=== PATIENT | male | born 1940 | race Caucasian/White ===

== ENCOUNTER 2017-11-04 11:24 | Observation (INO) ==
[2017-11-04] MEDS ORDERED: Naloxone 0.4 MG/ML INJ IVP PRN (16:07)
[2017-11-04] MEDS ORDERED: Acetaminophen 325 MG TABLET PO PRN (16:07)
[2017-11-04] MEDS ORDERED: Ondansetron 4 MG/2 ML VIAL IVP PRN (16:07)
--- NOTE | 2017-11-04 16:35 | Internal Med History&Physical ---
Date of Encounter: 11/04/17 Time of Encounter: 16:35 Assessment and Plan (1) Chest pain Current visit: Yes Status: Acute Patient was awakened this a.m. with midsternal chest heaviness which was nonradiating. EKG with no ST-T wave elevations Troponin is 0.01 which we will continue to trend Continue with aspirin and statin Check lipid profile in the a.m. Continue his cardiac monitoring Nothing by mouth after midnight for cardiac stress test in the a.m. Obtain cardiac echo Qualifiers: Chest pain type: precordial pain Qualified Code(s): R07.2 - Precordial pain (2) Hypertension Current visit: Yes Status: Chronic Presently controlled-continue with Hytrin Qualifiers: Hypertension type: essential hypertension Qualified Code(s): I10 - Essential (primary) hypertension (3) COPD (chronic obstructive pulmonary disease) Current visit: Yes Status: Chronic We will continue with bronchodilators and oxygen as needed Qualifiers: COPD type: unspecified COPD Qualified Code(s): J44.9 - Chronic obstructive pulmonary disease, unspecified (4) DVT prophylaxis Current visit: Yes Status: Acute Lovenox subcutaneous Internal Medicine - H&P: HPI Chief complaint: CP Admitted From: Hospital to Hospital Transfer Plans for Post Hospital Care: Home History of present illness: Mr. Chaney is a 77 year old male past echo history of hypertension hyperlipidemia COPD BPH,SVT according to the patient he was awaken by midsternal chest heaviness which he states is nonradiating. He had associated symptoms of shortness of breath nausea and vomiting. Upon arrival of EMS was that the patient's heart rate was 160. Upon arrival to the ER he was given Cardizem IV push 1 which did improve his rate and relief his chest pain EKG did reveal sinus tachycardia with PVC and a complete right bundle branch block. Lab work was unremarkable. Troponin was 0. 01 Chest x-ray no acute process. He was transferred from [facility] to this facility for further workup and evaluation-due to no cardiology available at previous facility. Presently patient is chest pain-free and is hemostatically stable at this time. Prior to this episode patient states he was in his normal state of health. He had been experiencing a cough with clear sputum production which she states is chronic. He denies any fevers chills nausea vomiting diarrhea or abdominal pain I did review this case with Dr. Abdi who agrees with plan Past Med Surg Social Fam HX - Past Medical History Medical history: COPD, GERD, hyperlipidemia Psychiatric history: no psych history - Social History Smoking Status: Former smoker Smokeless Tobacco Status: No Alcohol use: rarely Drug use: none - Family History Father Living Status: Hx Family Cancer: Yes (colon Lung cancer) Internal Medicine - H&P: Meds Albuterol Sulfate [Proair Hfa] 1 puff IH Q4H PRN 11/04/17 [History] Aspirin [Lo-Dose Aspirin EC] 81 mg PO DAILY 11/04/17 [History] Fenofibrate 160 mg PO DAILY 11/04/17 [History] Fluticasone/Salmeterol [Advair Hfa 115-21 Mcg Inhaler] 1 puff IH BID 11/04/17 [ History] Multivitamin [Multivitamins] 1 cap PO DAILY 11/04/17 [History] Omeprazole [PriLOSEC] 20 mg PO DAILY 11/04/17 [History] Simvastatin [Zocor] 40 mg PO HS 11/04/17 [History] Terazosin HCl 2 mg PO DAILY 11/04/17 [History] 3 Allergy/AdvReac Type Severity Reaction Status Date / Time No Known Allergies Allergy Verified 11/04/17 05:07 All Systems PM: A 10-system review of systems was performed and is negative for pertinent findings except as documented above in the HPI. - Constitutional Constitutional: no chills, no fever(s), no night sweats - EENT Eyes: no change in vision, no discharge, no pain, no photophobia Nose, mouth and throat: no dysphagia, no nasal discharge, no neck pain, no sore throat - Cardiovascular Cardiovascular ROS IM: chest pain - Respiratory Respiratory: no cough, no dyspnea, no wheezing, no excessive phlegm production - Gastrointestinal Gastrointestinal: no abdominal pain, no diarrhea, no hematemesis, no hematochezia, no melena, no nausea, no vomiting - Musculoskeletal Musculoskeletal ROS IM: no numbness, no tingling - Integumentary Integumentary IM: no rash, no unusual bruising - Neurological Neurological ROS: no confusion, no convulsions, no focal weakness, no numbness, no tingling, no tremor(s) - Hematologic/Lymphatic Hematologic/Lymphatic: no easy bruising - Constitutional Vitals: Temp Pulse Resp BP Pulse Ox 98.6 F 91 16 140/77 92 11/04/17 14:52 11/04/17 14:52 11/04/17 14:52 11/04/17 14:52 11/04/17 14:52 General appearance: Present: A&O X 3 - Head Head exam: Present: atraumatic, normocephalic - Eye Eye exam: Present: PERRL, conjuntiva pink, sclera anicteric Pupils: Present: PERRL - Neck Neck exam general surgery: Present: supple, trachea midline. Absent: lymphadenopathy - Respiratory Respiratory exam: Present: CTAB. Absent: accessory muscle use, rales, rhonchi, wheezes - Cardiovascular Cardiovascular exam: Present: RRR, +S1, +S2. Absent: diastolic murmur, gallop, rubs, systolic murmur - GI/Abdominal GI/Abdominal exam: Present: normal bowel sounds, soft, no peritoneal signs. Absent: distended, tenderness - Extremities Exam Extremities exam: Present: warm, radial pulses palpable and symmetrical. Absent : calf tenderness, cyanotic, pedal edema - Neurological Exam Neurological exam: Present: CN II-XII intact, oriented X3, no focal deficits. Absent: pronater drift, facial droop, speech deficit - Skin Skin exam: Present: dry, intact Internal Med - H&P Results - Labs Labs: Lab work drawn today at [facility] ER daily BC 11.4 hemoglobin 13.9 hematocrit 40 platelets 191 Sodium 139 potassium 3.7 chloride 105 bicarbonate 24 BUN 19 creatinine 1.05 glucose 113 BNP is 95 troponin .01 - EKG Data Rate: tachycardia
[2017-11-04] MEDS: Budesonide/Formoterol 80/4.5 MDI IH SCH (19:51)
[2017-11-04] MEDS ORDERED: NON-FORMULARY MEDICATION 1 EACH EACH (Fluticasone/Salmeterol [Advair Hfa 115-21 Mcg Inhale IH SCH (21:00)
[2017-11-05 05:35] LABS: Basophils # 0.1 K/mcL (0.0-0.2); Basophils % 1.1 %; Eosinophils # 0.2 K/mcL (0.0-0.6); Eosinophils % 3.3 %; Hematocrit 36.1 % (37.5-50.1); Hemoglobin 12.7 g/dL (12.9-16.9); Immature Granulocytes % 4.9 % (0-4); Lymphocytes # 1.4 K/mcL (0.6-4.6); Lymphocytes % 19.6 %; Mean Corpuscular HGB Conc 35.2 g/dL (31.6-35.5); Mean Corpuscular Hemoglobin 29.7 pg (28.0-33.3); Mean Corpuscular Volume 84.5 fL (83.0-100.0); Mean Platelet Volume 10.1 fL (9.4-12.4); Monocytes # 0.6 K/mcL (0.0-1.3); Monocytes % 8.5 %; Neutrophils # 4.5 K/mcL (1.6-8.9); Platelet Count 173 K/mcL (140-400); Red Blood Count 4.27 M/mcL (4.19-5.50); Red Cell Distribution Width 13.8 % (11.5-14.5); Segmented Neutrophils % 62.6 %
[2017-11-05 05:54] LABS: BUN/Creatinine Ratio 17 (6-26); Blood Urea Nitrogen 15 mg/dL (8-26); Calcium 8.5 mg/dL (8.6-10.8); Carbon Dioxide 20 mEq/L (19-29); Chloride 108 mEq/L (98-109); Chol/HDL Ratio 2.7 (0-4.9); Cholesterol 123 mg/dL (< 200); Glucose 94 mg/dL (70-99); HDL Cholesterol 46 mg/dL (40-59); Magnesium 1.8 mg/dL (1.6-2.6); Osmolality,Calculated 285 (280-300); Potassium 3.7 mEq/L (3.5-4.5); Sodium 137 mEq/L (136-145); eGFR For African Americans > 60 (> 60); eGFR For Non-African Americans > 60 (> 60)
[2017-11-05 06:08] LABS: LDL Cholesterol,Calculated 62 mg/dL (0-99); Triglycerides 73 mg/dL (< 150)
[2017-11-05] MEDS ORDERED: Regadenoson 0.4 MG/5 ML SYRINGE IVP ONE (06:20)
--- NOTE | 2017-11-05 07:29 | Event Note ---
Date of Encounter: 11/04/17 Time of Encounter: 19:00 Discussed with ANDREA and agree with assessment and plan. ACS rule out
[2017-11-05] MEDS: Budesonide/Formoterol 80/4.5 MDI IH SCH ×2 (07:51→20:06)
[2017-11-05] MEDS: Aspirin Enteric Coated 81 MG Tablet PO SCH (08:59)
[2017-11-05] MEDS: Multivit/Ca/Min/Fe/FA 1 TAB TABLET PO SCH (08:59)
[2017-11-05] MEDS: Fenofibrate 54 MG TABLET PO SCH (08:59)
[2017-11-05] MEDS: Loratadine 10 MG TABLET PO SCH (09:01)
[2017-11-05] MEDS: Fluticasone Propionate Nasal 50 MCG/SPRAY BOTTLE NS SCH (13:36)
--- NOTE | 2017-11-05 15:04 | Cardiology Consult Note ---
<VidalDiogoApple J - Last Filed: 11/05/17 15:01> Date of Encounter: 11/05/17 Time of Encounter: 13:30 Assessment and Plan (1) SVT (supraventricular tachycardia) Current Visit: Yes Status: Acute Per cardiology: -Admitted with increased shortness of breath. -Known history of SVT per patient. had previously been on beta hortencia. -SVT noted during attempted stress test. -started on beta hortencia by primary team. -Average HR previous 12 hours noted to be 82, SR. Intermittent SVT noted. -Patient reports had chest heaviness and shortness of breath while in SVT. -Denies current symptoms. -Will increase beta hortencia. (2) Chest heaviness Current Visit: Yes Status: Acute Per cardiology: -Reported chest heaviness while in SVT. -Troponins negative x3. -No acute ischemia ECG changes, -TTE with LVEF preserved, no wall motion abnormalities. -Denies current chest pain/heaviness. -STress was canceled today due to patient was in SVT while in stress lab. -Will make NPO after midnight. -Possible stress in am pending HR. Discussion w patient/family: The assessment and plan as outlined above was discussed with the patient who expressed understanding and agreement. All questions were answered. Thank you for involving us in the care of your patient. Please call with any questions. Discussed and reviewed with . History of Present Illness Consult date: 11/05/17 Requesting physician: Brenda Truong Consult reason: SVT Chief complaint: shortness of breath History of present illness: Mr. Chaney is a 77 year old male with a relevant past medical history of hyperlipidemia, HTN, anxiety, COPD, and SVT. Patient presented to [facility] with complaints of increased shortness of breath. Patient reports associated episdoes of chest heaviness at the time when he is short of breath. Patient states he is usually resting when symptoms occur. Denies exertional symptoms. Denies aggravating or alleviating factors. Denies increased fatigue. Patient denies palpitations or fluttering. Past Med Surg Social Fam HX - Past Medical History Attestation: Yes The following information was validated with the patient. Source: patient, old records reviewed Medical history: COPD, GERD, hyperlipidemia Psychiatric history: no psych history - Social History Smoking Status: Former smoker Smokeless Tobacco Status: No Alcohol use: rarely Drug use: none - Family History Father Living Status: Hx Family Cancer: Yes (colon Lung cancer) Medications and Allergies Albuterol Sulfate [Proair Hfa] 1 puff IH Q4H PRN 11/04/17 [History] Aspirin [Lo-Dose Aspirin EC] 81 mg PO DAILY 11/04/17 [History] Fenofibrate 160 mg PO DAILY 11/04/17 [History] Fluticasone/Salmeterol [Advair Hfa 115-21 Mcg Inhaler] 1 puff IH BID 11/04/17 [ History] Multivitamin [Multivitamins] 1 cap PO DAILY 11/04/17 [History] Omeprazole [PriLOSEC] 20 mg PO DAILY 11/04/17 [History] Simvastatin [Zocor] 40 mg PO HS 11/04/17 [History] Terazosin HCl 2 mg PO DAILY 11/04/17 [History] 3 Allergy/AdvReac Type Severity Reaction Status Date / Time No Known Allergies Allergy Verified 11/04/17 05:07 All Systems Review: A 10-system review of systems was performed and is negative for pertinent findings except as documented above in the HPI. - Cardiovascular Cardiovascular: as per HPI, chest pain at rest, dyspnea at rest Physical Examination Vital Signs, Last 4 Hours Temp Pulse Resp BP Pulse Ox 11/05/17 11:20 97.7 F 88 16 115/66 93 General: Conversant, No Apparent Distress HEENT: Atraumatic, Normocephaly, Mucus Membranes Moist Neck: No JVD, Normal carotid pulses Cardiac: Reg Rate and Rhythm, Normal S1 and S2, No Murmur Lungs: Normal Breath Sounds, No Wheeze, Rales, Rhonchi Neuro: Alert and responsive, No focal deficits noted Abdomen: Soft, Non-Tender Skin: No rashes noted on visualized skin Musculoskeletal: No Chest Wall Tenderness Extremities: No Clubbing, No Cyanosis, No Edema, Normal Pulses Results 11/05/17 05:09 11/05/17 05:09 Lab Results Impressions Echocardiogram 11/04/17 16:15 Impressions: LVEF 60%. Normal LV chamber size, wall thickness and function. Mild left ventricular diastolic dysfunction. Normal right ventricular structure and function. Unable to estimate RVSP due to lack of TR jet. No significant valvular dysfunction. Left Ventricular Wall Motion: Rest Echo Findings All wall segments showed normal motion. Findings: Study Quality * Technically adequate exam. ECG Findings * Normal sinus rhythm. Left Ventricle * LVEF 60%. * Normal LV chamber size, wall thickness and function. * Mild left ventricular diastolic dysfunction. Right Ventricle * Normal right ventricular structure and function. Left Atrium * Normal left atrial size. Right Atrium * Normal right atrial size. Interatrial Septum * Interatrial septum not well evaluated. Aortic Valve * Aortic valve not well visualized. * No aortic regurgitation. * No aortic stenosis. Mitral Valve * Normal mitral valve structure and function. * No mitral regurgitation. * No mitral stenosis. Tricuspid Valve * Normal tricuspid valve structure and function. * No tricuspid regurgitation. * Unable to estimate RVSP due to lack of TR jet. Pulmonic Valve * Normal pulmonic valve structure and function. * No pulmonic regurgitation. Aorta * Normally sized aortic root. Pericardium * The pericardium appears normal. IVC * Normal IVC dimensions and inspiratory collapse. Pulmonary Artery * Normal visualized portions of the main pulmonary artery. Active Medications Acetaminophen (Tylenol) 650 mg PO Q6HR PRN PRN Reason: Mild Pain (1-3) Stop: 05/06/18 16:08 Last Admin: 11/05/17 13:35 Dose: 650 mg Albuterol Sulfate (Albuterol Inhaler) 1 puff IH Q4H PRN PRN Reason: SHORTNESS OF BREATH Stop: 05/06/18 16:09 Last Admin: 11/05/17 07:53 Dose: 1 puff Aspirin (Aspirin Ec) 81 mg PO DAILY [facility] Stop: 05/07/18 09:01 Last Admin: 11/05/17 08:59 Dose: 81 mg Budesonide/Formoterol Fumarate (Symbicort) 2 puff IH BIDRESP [facility] Stop: 05/06/18 22:01 Last Admin: 11/05/17 07:51 Dose: 2 puff Docusate Sodium (Colace) 100 mg PO DAILY PRN; Protocol PRN Reason: Constipation Stop: 05/07/18 13:12 Last Admin: 11/05/17 13:35 Dose: 100 mg Fenofibrate (Tricor) 162 mg PO DAILY [facility] Stop: 05/07/18 09:01 Last Admin: 11/05/17 08:59 Dose: 162 mg Fluticasone Propionate (Flonase) 50 mcg NS DAILY JESSICA PRN Reason: Protocol Stop: 05/07/18 09:01 Last Admin: 11/05/17 13:36 Dose: 50 mcg Loratadine (Claritin) 10 mg PO DAILY JESSICA PRN Reason: Protocol Stop: 05/07/18 09:01 Last Admin: 11/05/17 09:01 Dose: 10 mg Metoprolol Tartrate (Lopressor) 25 mg PO BID JESSICA Stop: 05/07/18 21:01 Multivitamins/Calcium (Thera M Plus) 1 tab PO DAILY JESSICA Stop: 05/07/18 09:01 Last Admin: 11/05/17 08:59 Dose: 1 tab Naloxone HCl (Narcan) 0.4 mg IVP Q2MIN PRN PRN Reason: Opioid Reversal Stop: 05/06/18 16:08 Omeprazole (Prilosec) 20 mg PO 0630 JESSICA PRN Reason: Protocol Stop: 05/07/18 06:31 Last Admin: 11/05/17 08:59 Dose: 20 mg Ondansetron HCl (Zofran) 4 mg IVP Q8HR PRN PRN Reason: Nausea And Vomiting Stop: 05/06/18 16:08 Simvastatin (Zocor) 40 mg PO HS JESSICA PRN Reason: Protocol Stop: 05/06/18 21:01 Last Admin: 11/04/17 21:44 Dose: 40 mg Terazosin HCl (Hytrin) 2 mg PO DAILY [facility] Stop: 05/07/18 09:01 Last Admin: 11/05/17 08:59 Dose: 2 mg - Imaging and Cardiology Chest Xray: report reviewed Stress Test: pending Echo: report reviewed - EKG Interpretation EKG results cardiology: personally reviewed (ECG with SR, PACs HR 77.), other ( Telemetry reviewed with average HR previous 12 hours noted to be 82, sinus rhythm. PVCs noted. INtermittent episodes of SVT noted.) Consult Discharge Plan - Plan Referrals: [facility] [Provider Group] Janusz Argueta CNP [Primary Care Provider] - 11/11/17 9:30 am <Alireza Gomez - Last Filed: 11/06/17 14:10> Date of Encounter: 11/06/17 - Attending Attestation I have personally performed a face to face evaluation on this patient. I have reviewed and agree with the care plan. 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 All questions were answered. Thank you for involving us in the care of your patient. Please call with any questions. History of Present Illness History of present illness: Mr. Chaney is a 77 year old male All Systems Review: A 10-system review of systems was performed and is negative for pertinent findings except as documented above in the HPI. Physical Examination Vital Signs, Last 4 Hours Temp Pulse Resp BP Pulse Ox 11/06/17 11:17 98.0 F 74 16 138/80 91 11/06/17 10:33 16 95 Results 11/06/17 03:40 11/06/17 03:40 Lab Results 11/06/17 11/06/17 03:40 03:40 WBC 8.7 Hgb 12.0 L Hct 34.9 L Plt Count 187 Sodium 139 Potassium 3.8 Chloride 108 Carbon Dioxide 22 BUN 15 Creatinine 0.94 Glucose 111 H Calcium 8.5 L
--- NOTE | 2017-11-05 16:48 | Internal Med Progress Note ---
Date of Encounter: 11/05/17 Time of Encounter: 08:50 - Assessment and plan (1) Chest pain Current Visit: Yes Status: Acute Assessment and plan: Patient was awakened the morning of admission with midsternal chest heaviness, nonradiating. He states that he awakened and got up and began feeling dizzy and had diarrhea. The symptoms were intense and lasted approximately 90 minutes. He denies fever or chills, he denies headache, nausea vomiting with the dizziness and diarrhea. The symptoms have all resolved. He does report that he continues to feel fatigued and very sleepy. Patient was to have a stress test this morning, he was in SVT and stress test was canceled. He is brought back to the department placed on a beta hortencia. He continued to have intermittent runs of SVT and the dose has been increased. He continues to have chest heaviness and shortness of breath with SVT. Troponins were negative. Lipids are within normal limits. His vital signs are stable. Echocardiogram reveals an LVEF of 60% with mild LV DD and no significant valvular dysfunction. All wall segments showed normal motion. Stress test in the morning Nothing by mouth after midnight Continue telemetry Qualifiers: Chest pain type: unspecified Qualified Code(s): R07.9 - Chest pain, unspecified (2) Hypertension Current Visit: Yes Status: Chronic Assessment and plan: Blood pressure is well controlled. Continue home medications. Qualifiers: Hypertension type: essential hypertension Qualified Code(s): I10 - Essential (primary) hypertension (3) COPD (chronic obstructive pulmonary disease) Current Visit: Yes Status: Chronic Assessment and plan: No acute exacerbation. Lungs are clear and diminished throughout. Patient is a nonsmoker. Continue home medication regimen. Qualifiers: COPD type: unspecified COPD Qualified Code(s): J44.9 - Chronic obstructive pulmonary disease, unspecified (4) DVT prophylaxis Current Visit: Yes Status: Acute Assessment and plan: Lovenox subcutaneous daily. (5) SVT (supraventricular tachycardia) Current Visit: Yes Status: Acute Assessment and plan: Patient has prior history of SVT. He has been placed on beta hortencia which has been stopped due to his feeling dizzy. Patient has had several runs of SVT today and his stress test was canceled. Patient reports chest heaviness and shortness of breath while he is in SVT. This may be the etiology for his admission dizziness and diarrhea, as well. He was restarted on a low-dose beta hortencia, he continued to have intermittent runs of SVT. He was seen by cardiology and beta hortencia was increased. Patient will have stress test in the morning. - Time Spent With Patient less than 15 minutes - Subjective Interval history: Patient was seen and assessed at 8:50 AM. Since he states he lives with his grandson and on the day of admission began feeling dizzy and having diarrhea. It lasted approximately 90 minutes. He denies any headache, nausea, vomiting at the time of incident or now. He denies feeling dizzy now. He denies fever or chills. He does report feeling extremely fatigued and sleepy. Has prior history of SVT for which he took beta hortencia. They have been stopped due to him feeling dizzy. We have restarted low-dose today. - Constitutional Vitals: Temp Pulse Resp BP Pulse Ox 98.0 F 75 15 133/77 96 11/05/17 15:05 11/05/17 15:05 11/05/17 15:05 11/05/17 15:05 11/05/17 15:05 General appearance: Present: cooperative, A&O X 3, pleasant, no acute distress, answers questions appropriately - Head Head exam: Present: atraumatic, normal inspection, normocephalic - Eye Eye exam: Present: conjuntiva pink, sclera anicteric. Absent: normal appearance - Neck Neck exam general surgery: Present: supple, trachea midline. Absent: lymphadenopathy - Respiratory Respiratory exam: Present: CTAB. Absent: accessory muscle use, chest wall tenderness, rales, respiratory distress, rhonchi, wheezes - Cardiovascular Cardiovascular exam: Present: RRR, +S1, +S2. Absent: bradycardia, diastolic murmur, gallop, rubs, systolic murmur, tachycardia - GI/Abdominal GI/Abdominal exam: Present: normal bowel sounds, soft. Absent: distended, hepatomegaly, tenderness - Extremities Exam Extremities exam: Present: normal capillary refill, warm, radial pulses palpable and symmetrical. Absent: calf tenderness, cyanotic, pedal edema - Neurological Exam Neurological exam: Present: alert, oriented X3, no focal deficits. Absent: altered, facial droop, speech deficit - Skin Skin exam: Present: dry, intact, normal color, warm. Absent: rash Internal Medicine: Result - Labs CBC & Chem 7: 11/05/17 05:09 11/05/17 05:09 Labs: Short CBC 11/05/17 Range/Units 05:09 WBC 7.2 (4.3-11.1) K/mcL Hgb 12.7 L (12.9-16.9) g/dL Hct 36.1 L (37.5-50.1) % Plt Count 173 (140-400) K/mcL Neutrophils # 4.5 (1.6-8.9) K/mcL BMP 11/05/17 05:09 Sodium 137 Potassium 3.7 Chloride 108 Carbon Dioxide 20 BUN 15 Creatinine 0.89 Glucose 94 Calcium 8.5 L Cardiac Enzymes 11/04/17 11/04/17 11/05/17 Range/Units 16:16 22:14 05:09 Troponin I 0.01 0.02 0.02 (0-0.03) ng/mL - Impressions Impressions Echocardiogram 11/04/17 16:15 Impressions: LVEF 60%. Normal LV chamber size, wall thickness and function. Mild left ventricular diastolic dysfunction. Normal right ventricular structure and function. Unable to estimate RVSP due to lack of TR jet. No significant valvular dysfunction. Left Ventricular Wall Motion: Rest Echo Findings All wall segments showed normal motion. Findings: Study Quality * Technically adequate exam. ECG Findings * Normal sinus rhythm. Left Ventricle * LVEF 60%. * Normal LV chamber size, wall thickness and function. * Mild left ventricular diastolic dysfunction. Right Ventricle * Normal right ventricular structure and function. Left Atrium * Normal left atrial size. Right Atrium * Normal right atrial size. Interatrial Septum * Interatrial septum not well evaluated. Aortic Valve * Aortic valve not well visualized. * No aortic regurgitation. * No aortic stenosis. Mitral Valve * Normal mitral valve structure and function. * No mitral regurgitation. * No mitral stenosis. Tricuspid Valve * Normal tricuspid valve structure and function. * No tricuspid regurgitation. * Unable to estimate RVSP due to lack of TR jet. Pulmonic Valve * Normal pulmonic valve structure and function. * No pulmonic regurgitation. Aorta * Normally sized aortic root. Pericardium * The pericardium appears normal. IVC * Normal IVC dimensions and inspiratory collapse. Pulmonary Artery * Normal visualized portions of the main pulmonary artery. Consult Discharge Plan - Plan Referrals: [facility] [Provider Group] Janusz Argueta CNP [Primary Care Provider] - 11/11/17 9:30 am
[2017-11-06 04:38] LABS: Basophils % 0.3 %; Eosinophils # 0.2 K/mcL (0.0-0.6); Eosinophils % 2.6 %; Hematocrit 34.9 % (37.5-50.1); Immature Granulocytes % 4.6 % (0-4); Lymphocytes # 1.7 K/mcL (0.6-4.6); Lymphocytes % 19.8 %; Mean Corpuscular HGB Conc 34.4 g/dL (31.6-35.5); Mean Corpuscular Hemoglobin 28.7 pg (28.0-33.3); Mean Corpuscular Volume 83.5 fL (83.0-100.0); Mean Platelet Volume 10.6 fL (9.4-12.4); Monocytes % 11.5 %; Neutrophils # 5.3 K/mcL (1.6-8.9); Platelet Count 187 K/mcL (140-400); Red Blood Count 4.18 M/mcL (4.19-5.50); Red Cell Distribution Width 13.7 % (11.5-14.5); Segmented Neutrophils % 61.2 %
[2017-11-06 04:58] LABS: BUN/Creatinine Ratio 16 (6-26); Blood Urea Nitrogen 15 mg/dL (8-26); Calcium 8.5 mg/dL (8.6-10.8); Carbon Dioxide 22 mEq/L (19-29); Chloride 108 mEq/L (98-109); Glucose 111 mg/dL (70-99); Osmolality,Calculated 290 (280-300); Potassium 3.8 mEq/L (3.5-4.5); Sodium 139 mEq/L (136-145); eGFR For African Americans > 60 (> 60); eGFR For Non-African Americans > 60 (> 60)
[2017-11-06 05:22] LABS: Platelet Estimate Normal (Normal)
[2017-11-06 05:23] LABS: Reactive Lymphocytes Present (Not Present)
[2017-11-06] MEDS: Budesonide/Formoterol 80/4.5 MDI IH SCH ×2 (10:31→19:28)
[2017-11-06] MEDS ORDERED: Regadenoson 0.4 MG/5 ML SYRINGE IVP ONE (11:40)
[2017-11-06] MEDS: Aspirin Enteric Coated 81 MG Tablet PO SCH (14:44)
[2017-11-06] MEDS: Loratadine 10 MG TABLET PO SCH (14:44)
[2017-11-06] MEDS: Fenofibrate 54 MG TABLET PO SCH (14:45)
[2017-11-06] MEDS: Multivit/Ca/Min/Fe/FA 1 TAB TABLET PO SCH (14:45)
[2017-11-06] MEDS: Fluticasone Propionate Nasal 50 MCG/SPRAY BOTTLE NS SCH (14:49)
--- NOTE | 2017-11-06 15:43 | Cardiology Progress Note ---
Date of Encounter: 11/06/17 Time of Encounter: 14:30 Assessment and Plan (1) SVT (supraventricular tachycardia) Current Visit: Yes Status: Acute Per cardiology: -Admitted with increased shortness of breath. -Known history of SVT per patient. had previously been on beta hortencia. -SVT noted during attempted stress test. -started on beta hortencia by primary team. -Average HR previous 12 hours noted to be 63, SR. -Patient reports had chest heaviness and shortness of breath while in SVT. -Denies current symptoms. -Of note, after my assessment patient had an episode of SVT. -Will increase beta hortencia. -Will continue to monitor telemtry. (2) Chest heaviness Current Visit: Yes Status: Acute Per cardiology: -Reported chest heaviness while in SVT. -Troponins negative x3. -No acute ischemia ECG changes, -TTE with LVEF preserved, no wall motion abnormalities. -Denies current chest pain/heaviness. -Stress negative for ischemia or infarct. Discussion w patient/family: The assessment and plan as outlined above was discussed with the patient who expressed understanding and agreement. All questions were answered. Thank you for involving us in the care of your patient. Please call with any questions. Discussed and reviewed with . Subjective Principal diagnosis: shortness of breath Interval history: Patient states he feels better today. Denies chest pain or shortness of breath. Objective Vital Signs Temperature 98.0 F 11/04/17 13:00 Pulse Rate 86 11/04/17 13:00 Respiratory Rate 16 11/04/17 13:00 Blood Pressure 144/78 11/04/17 13:00 O2 Sat by Pulse Oximetry 96 11/04/17 13:00 Temperature 98.0 F 11/06/17 11:17 Pulse Rate 74 11/06/17 11:17 Respiratory Rate 16 11/06/17 11:17 Blood Pressure 138/80 11/06/17 11:17 O2 Sat by Pulse Oximetry 91 11/06/17 11:17 General: Conversant, No Apparent Distress HEENT: Atraumatic, Normocephaly, Mucus Membranes Moist Neck: No JVD, Normal carotid pulses Cardiac: Reg Rate and Rhythm, Normal S1 and S2, No Murmur Lungs: Normal Breath Sounds, No Wheeze, Rales, Rhonchi Neuro: Alert and responsive, No focal deficits noted Abdomen: Soft, Non-Tender Skin: No rashes noted on visualized skin Musculoskeletal: No Chest Wall Tenderness Extremities: No Clubbing, No Cyanosis, No Edema, Normal Pulses Results 11/06/17 03:40 11/06/17 03:40 Lab Results Active Medications Acetaminophen (Tylenol) 650 mg PO Q6HR PRN PRN Reason: Mild Pain (1-3) Stop: 05/06/18 16:08 Last Admin: 11/05/17 13:35 Dose: 650 mg Albuterol Sulfate (Albuterol Inhaler) 1 puff IH Q4H PRN PRN Reason: SHORTNESS OF BREATH Stop: 05/06/18 16:09 Last Admin: 11/06/17 10:31 Dose: 1 puff Aspirin (Aspirin Ec) 81 mg PO DAILY [facility] Stop: 05/07/18 09:01 Last Admin: 11/06/17 14:44 Dose: 81 mg Budesonide/Formoterol Fumarate (Symbicort) 2 puff IH BIDRESP [facility] Stop: 05/06/18 22:01 Last Admin: 11/06/17 10:31 Dose: 2 puff Docusate Sodium (Colace) 100 mg PO DAILY PRN; Protocol PRN Reason: Constipation Stop: 05/07/18 13:12 Last Admin: 11/05/17 13:35 Dose: 100 mg Fenofibrate (Tricor) 162 mg PO DAILY [facility] Stop: 05/07/18 09:01 Last Admin: 11/06/17 14:45 Dose: 162 mg Fluticasone Propionate (Flonase) 50 mcg NS DAILY [facility] PRN Reason: Protocol Stop: 05/07/18 09:01 Last Admin: 11/06/17 14:49 Dose: 50 mcg Loratadine (Claritin) 10 mg PO DAILY [facility] PRN Reason: Protocol Stop: 05/07/18 09:01 Last Admin: 11/06/17 14:44 Dose: 10 mg Metoprolol Tartrate (Lopressor) 50 mg PO BID [facility] Stop: 05/08/18 21:01 Multivitamins/Calcium (Thera M Plus) 1 tab PO DAILY [facility] Stop: 05/07/18 09:01 Last Admin: 11/06/17 14:45 Dose: 1 tab Naloxone HCl (Narcan) 0.4 mg IVP Q2MIN PRN PRN Reason: Opioid Reversal Stop: 05/06/18 16:08 Omeprazole (Prilosec) 20 mg PO 0630 [facility] PRN Reason: Protocol Stop: 05/07/18 06:31 Last Admin: 11/06/17 05:36 Dose: Not Given Ondansetron HCl (Zofran) 4 mg IVP Q8HR PRN PRN Reason: Nausea And Vomiting Stop: 05/06/18 16:08 Simvastatin (Zocor) 40 mg PO HS [facility] PRN Reason: Protocol Stop: 05/06/18 21:01 Last Admin: 11/05/17 21:21 Dose: 40 mg Terazosin HCl (Hytrin) 2 mg PO DAILY [facility] Stop: 05/07/18 09:01 Last Admin: 11/06/17 14:44 Dose: 2 mg Laboratory Tests 11/04/17 11/04/17 11/05/17 16:16 22:14 05:09 Hgb Potassium Creatinine Troponin I 0.01 0.02 0.02 11/06/17 11/06/17 03:40 03:40 Hgb 12.0 L Potassium 3.8 Creatinine 0.94 Troponin I - Imaging and Cardiology Chest Xray: report reviewed Stress Test: report reviewed Echo: report reviewed - EKG Interpretation EKG results cardiology: other (Telemetry reviewed with average HR previous 12 hours noted to be 63, sinus rhythm. PVCs noted.) Consult Discharge Plan - Plan Referrals: [facility] [Provider Group] Janusz Argueta CNP [Primary Care Provider] - 11/11/17 9:30 am
--- NOTE | 2017-11-06 16:27 | Internal Med Progress Note ---
Date of Encounter: 11/06/17 Time of Encounter: 10:10 - Assessment and plan (1) Chest pain Current Visit: Yes Status: Acute Assessment and plan: Patient was awakened the morning of admission with midsternal chest heaviness, nonradiating. He states that he awakened and got up and began feeling dizzy and had diarrhea. The symptoms were intense and lasted approximately 90 minutes. He denies fever or chills, he denies headache, nausea vomiting with the dizziness and diarrhea. The symptoms have all resolved. He does report that he continues to feel fatigued and very sleepy. Patient was to have a stress test but it was cancelled because he was in SVT. He is brought back to the department placed on a beta hortencia. He continued to have intermittent runs of SVT and the dose has been increased. He continues to have chest heaviness and shortness of breath with SVT. He had his stress test which was negative, and when he was ready to be discharged, he went into brief runs of SVT, BB increased again by cardiology. Troponins were negative. Lipids are within normal limits. His vital signs are stable. Echocardiogram reveals an LVEF of 60% with mild LV DD and no significant valvular dysfunction. All wall segments showed normal motion. Most likely pt will be discharged in the am if no more runs of SVT. Continue telemetry Qualifiers: Chest pain type: unspecified Qualified Code(s): R07.9 - Chest pain, unspecified (2) Hypertension Current Visit: Yes Status: Chronic Assessment and plan: Blood pressure is well controlled. Continue home medications. Qualifiers: Hypertension type: essential hypertension Qualified Code(s): I10 - Essential (primary) hypertension (3) COPD (chronic obstructive pulmonary disease) Current Visit: Yes Status: Chronic Assessment and plan: No acute exacerbation. Lungs are clear and diminished throughout. Patient is a nonsmoker. Continue home medication regimen. Qualifiers: COPD type: unspecified COPD Qualified Code(s): J44.9 - Chronic obstructive pulmonary disease, unspecified (4) SVT (supraventricular tachycardia) Current Visit: Yes Status: Acute Assessment and plan: Patient has prior history of SVT. He has been placed on beta hortencia which has been stopped due to his feeling dizzy. Patient has had several runs of SVT and his stress test was canceled initially. After stress test was completed, he had more runs of SVT and BB was increased again. Patient reports chest heaviness and shortness of breath while he is in SVT. This may be the etiology for his admission dizziness and diarrhea, as well. He was restarted on a low-dose beta hortencia, he continued to have intermittent runs of SVT. He was seen by cardiology and beta hortencia was increased. (5) DVT prophylaxis Current Visit: Yes Status: Acute Assessment and plan: Lovenox subcutaneous daily. - Time Spent With Patient less than 15 minutes - Subjective Interval history: Patient was seen and assessed at 1010 AM. He has returned from stress test and has been seen by cardiology. He was to be discharged, but went back into SVT. Cardiology aware and will increase BB. Pt denies chest pain, SOB, N/V/D, abdominal pain, or dizziness. Pt will stay tonight to monitor for effectiveness of BB increase and discharge tomorrow. - Constitutional Vitals: Temp Pulse Resp BP Pulse Ox 98.2 F 74 16 141/78 96 11/06/17 15:43 11/06/17 15:43 11/06/17 15:43 11/06/17 15:43 11/06/17 15:43 General appearance: Present: cooperative, A&O X 3, pleasant, no acute distress, answers questions appropriately - Head Head exam: Present: atraumatic, normal inspection, normocephalic - Eye Eye exam: Present: normal appearance, conjuntiva pink, sclera anicteric - Neck Neck exam general surgery: Present: normal inspection, supple, trachea midline. Absent: lymphadenopathy, tenderness - Respiratory Respiratory exam: Present: CTAB. Absent: accessory muscle use, chest wall tenderness, decreased breath sounds, prolonged expiratory phase, rales, rhonchi , wheezes - Cardiovascular Cardiovascular exam: Present: RRR, +S1, +S2. Absent: diastolic murmur, gallop, rubs, systolic murmur - GI/Abdominal GI/Abdominal exam: Present: normal bowel sounds, soft, no peritoneal signs. Absent: distended, hepatomegaly, tenderness - Extremities Exam Extremities exam: Present: normal capillary refill, normal inspection, warm, radial pulses palpable and symmetrical. Absent: calf tenderness, cyanotic, pedal edema, tenderness - Neurological Exam Neurological exam: Present: alert, oriented X3, no focal deficits. Absent: facial droop, speech deficit - Skin Skin exam: Present: dry, intact, normal color, warm. Absent: rash Internal Medicine: Result - Labs CBC & Chem 7: 11/06/17 03:40 11/06/17 03:40 Labs: Short CBC 11/06/17 Range/Units 03:40 WBC 8.7 (4.3-11.1) K/mcL Hgb 12.0 L (12.9-16.9) g/dL Hct 34.9 L (37.5-50.1) % Plt Count 187 (140-400) K/mcL Neutrophils # 5.3 (1.6-8.9) K/mcL BMP 11/06/17 03:40 Sodium 139 Potassium 3.8 Chloride 108 Carbon Dioxide 22 BUN 15 Creatinine 0.94 Glucose 111 H Calcium 8.5 L Consult Discharge Plan - Plan Referrals: [facility] [place] [Provider Group] Janusz Argueta CNP [Primary Care Provider] - 11/11/17 9:30 am
--- NOTE | 2017-11-06 18:16 | Electrocardiograph Report ---
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
--- NOTE | 2017-11-06 18:30 | Electrocardiograph Report ---
[place] [address] Test Date: 2017-11-05 Pat Name: Arie Chaney Department: 113 Room: 3B Gender: M Admitting Supervisor: : 1940 Requested By: Sienna Blank Order Number: [id number] Reading MD: Jose Carlos Santiago DO Measurements Intervals [place] Rate: 78 P: 43 NE: 198 QRS: -44 QRSD: 87 T: 23 QT: 385 QTc: 418 Interpretive Statements SINUS RHYTHM WITH OCCASIONAL SUPRAVENTRICULAR PREMATURE COMPLEXES MARKED LEFT AXIS DEVIATION Electronically Signed On 11-06-2017 18:28:39 EST by Jose Carlos Santiago DO
--- NOTE | 2017-11-06 18:38 | Electrocardiograph Report ---
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
[2017-11-07 07:49] VITALS: BP 154/84
[2017-11-07] MEDS: Budesonide/Formoterol 80/4.5 MDI IH SCH (08:32)
[2017-11-07] MEDS: Fenofibrate 54 MG TABLET PO SCH (09:47)
[2017-11-07] MEDS: Aspirin Enteric Coated 81 MG Tablet PO SCH (09:47)
[2017-11-07] MEDS: Fluticasone Propionate Nasal 50 MCG/SPRAY BOTTLE NS SCH (09:48)
[2017-11-07] MEDS: Loratadine 10 MG TABLET PO SCH (09:48)
[2017-11-07] MEDS: Multivit/Ca/Min/Fe/FA 1 TAB TABLET PO SCH (09:48)
--- NOTE | 2017-11-07 10:10 | Cardiology Progress Note ---
Date of Encounter: 11/07/17 Time of Encounter: 09:30 Assessment and Plan (1) SVT (supraventricular tachycardia) Current Visit: Yes Status: Acute Per cardiology: -Admitted with increased shortness of breath. -Known history of SVT per patient. had previously been on beta hortencia. -SVT noted per telemetry yesterday. Strips reviewed with . -started on beta hortencia by primary team. -Average HR previous 12 hours noted to be 64, SR. -Patient reports had chest heaviness and shortness of breath while in SVT. -Denies current symptoms. -NO SVT noted overnight. -Cardiology will sign off and will follow in outpatient setting. Follow up set. -I educated patient on importance of continuing beta blockers at home, patient states understanding. (2) Chest heaviness Current Visit: Yes Status: Acute Per cardiology: -Reported chest heaviness while in SVT. -Troponins negative x3. -No acute ischemia ECG changes, -TTE with LVEF preserved, no wall motion abnormalities. -Denies current chest pain/heaviness. -Stress negative for ischemia or infarct. Discussion w patient/family: The assessment and plan as outlined above was discussed with the patient who expressed understanding and agreement. All questions were answered. Thank you for involving us in the care of your patient. Please call with any questions. Discussed and reviewed with . Subjective Principal diagnosis: shortness of breath Interval history: Patient states he feels better today. Denies chest pain or shortness of breath. Denies palpitations or fluttering. Objective Vital Signs, Last 4 Hours Temp Pulse Resp BP Pulse Ox 11/07/17 08:34 18 90 11/07/17 07:48 98.1 F 66 16 154/84 96 General: Conversant, No Apparent Distress HEENT: Atraumatic, Normocephaly, Mucus Membranes Moist Neck: No JVD, Normal carotid pulses Cardiac: Reg Rate and Rhythm, Normal S1 and S2, No Murmur Lungs: Normal Breath Sounds, No Wheeze, Rales, Rhonchi Neuro: Alert and responsive, No focal deficits noted Abdomen: Soft, Non-Tender Skin: No rashes noted on visualized skin Musculoskeletal: No Chest Wall Tenderness Extremities: No Clubbing, No Cyanosis, No Edema, Normal Pulses Results 11/06/17 03:40 11/06/17 03:40 Active Medications Acetaminophen (Tylenol) 650 mg PO Q6HR PRN PRN Reason: Mild Pain (1-3) Stop: 05/06/18 16:08 Last Admin: 11/05/17 13:35 Dose: 650 mg Albuterol Sulfate (Albuterol Inhaler) 1 puff IH Q4H PRN PRN Reason: SHORTNESS OF BREATH Stop: 05/06/18 16:09 Last Admin: 11/06/17 19:28 Dose: 1 puff Aspirin (Aspirin Ec) 81 mg PO DAILY [facility] Stop: 05/07/18 09:01 Last Admin: 11/07/17 09:47 Dose: 81 mg Budesonide/Formoterol Fumarate (Symbicort) 2 puff IH BIDRESP [facility] Stop: 05/06/18 22:01 Last Admin: 11/07/17 08:32 Dose: 2 puff Docusate Sodium (Colace) 100 mg PO DAILY PRN; Protocol PRN Reason: Constipation Stop: 05/07/18 13:12 Last Admin: 11/05/17 13:35 Dose: 100 mg Fenofibrate (Tricor) 162 mg PO DAILY [facility] Stop: 05/07/18 09:01 Last Admin: 11/07/17 09:47 Dose: 162 mg Fluticasone Propionate (Flonase) 50 mcg NS DAILY [facility] PRN Reason: Protocol Stop: 05/07/18 09:01 Last Admin: 11/07/17 09:48 Dose: 50 mcg Loratadine (Claritin) 10 mg PO DAILY [facility] PRN Reason: Protocol Stop: 05/07/18 09:01 Last Admin: 11/07/17 09:48 Dose: 10 mg Metoprolol Tartrate (Lopressor) 50 mg PO BID [facility] Stop: 05/08/18 21:01 Last Admin: 11/07/17 09:47 Dose: 50 mg Multivitamins/Calcium (Thera M Plus) 1 tab PO DAILY [facility] Stop: 05/07/18 09:01 Last Admin: 11/07/17 09:48 Dose: 1 tab Naloxone HCl (Narcan) 0.4 mg IVP Q2MIN PRN PRN Reason: Opioid Reversal Stop: 05/06/18 16:08 Omeprazole (Prilosec) 20 mg PO 0630 [facility] PRN Reason: Protocol Stop: 05/07/18 06:31 Last Admin: 11/07/17 09:47 Dose: 20 mg Ondansetron HCl (Zofran) 4 mg IVP Q8HR PRN PRN Reason: Nausea And Vomiting Stop: 05/06/18 16:08 Simvastatin (Zocor) 40 mg PO HS [facility] PRN Reason: Protocol Stop: 05/06/18 21:01 Last Admin: 11/06/17 19:57 Dose: 40 mg Terazosin HCl (Hytrin) 2 mg PO DAILY [facility] Stop: 05/07/18 09:01 Last Admin: 11/07/17 09:47 Dose: 2 mg Laboratory Tests 11/06/17 11/06/17 03:40 03:40 Hgb 12.0 L Creatinine 0.94 - Imaging and Cardiology Chest Xray: report reviewed Stress Test: report reviewed Echo: report reviewed - EKG Interpretation EKG results cardiology: other (Telemetry reviewed with average HR previous 12 hours noted to be 64, sinus rhythm. PVCs and PACs noted. No SVT appreciated.) Consult Discharge Plan - Plan Referrals: [facility] [Provider Group] Janusz Argueta CNP [Primary Care Provider] - 11/11/17 9:30 am
--- NOTE | 2017-11-07 10:18 | Discharge Summary ---
Date of Encounter: 11/07/17 Time of Encounter: 09:05 - Discharge Diagnosis (1) Chest pain Priority: Primary Status: Acute Comments: Patient was awakened the morning of admission with midsternal chest heaviness, nonradiating. He states that he awakened and got up and began feeling dizzy and had diarrhea. The symptoms were intense and lasted approximately 90 minutes. He denies fever or chills, he denies headache, nausea vomiting with the dizziness and diarrhea. The symptoms have all resolved. He states that he feels better and is back to his baseline. Patient was to have a stress test but it was cancelled because he was in SVT. He is brought back to the department placed on a beta hortencia. He continued to have intermittent runs of SVT and the dose has been increased. He continues to have chest heaviness and shortness of breath with SVT. He had his stress test which was negative, and when he was ready to be discharged, he went into brief runs of SVT, BB increased again by cardiology. Troponins were negative. Lipids are within normal limits. His vital signs are stable. Echocardiogram reveals an LVEF of 60% with mild LV DD and no significant valvular dysfunction. All wall segments showed normal motion. Stress negative for ischemia or infarct, gated EF 69%. Pts heart rate remained NSR throughout the night and pt states that he feels better. Pt is stable for discharge. Echocardiogram 11/04/17 16:15 Impressions: LVEF 60%. Normal LV chamber size, wall thickness and function. Mild left ventricular diastolic dysfunction. Normal right ventricular structure and function. Unable to estimate RVSP due to lack of TR jet. No significant valvular dysfunction. Left Ventricular Wall Motion: Rest Echo Findings All wall segments showed normal motion. Findings: Study Quality * Technically adequate exam. ECG Findings * Normal sinus rhythm. Left Ventricle * LVEF 60%. * Normal LV chamber size, wall thickness and function. * Mild left ventricular diastolic dysfunction. Right Ventricle * Normal right ventricular structure and function. Left Atrium * Normal left atrial size. Right Atrium * Normal right atrial size. Interatrial Septum * Interatrial septum not well evaluated. Aortic Valve * Aortic valve not well visualized. * No aortic regurgitation. * No aortic stenosis. Mitral Valve * Normal mitral valve structure and function. * No mitral regurgitation. * No mitral stenosis. Tricuspid Valve * Normal tricuspid valve structure and function. * No tricuspid regurgitation. * Unable to estimate RVSP due to lack of TR jet. Pulmonic Valve * Normal pulmonic valve structure and function. * No pulmonic regurgitation. Aorta * Normally sized aortic root. Pericardium * The pericardium appears normal. IVC * Normal IVC dimensions and inspiratory collapse. Pulmonary Artery * Normal visualized portions of the main pulmonary artery. Qualifiers: Qualified Code(s): R07.9 - Chest pain, unspecified (2) Hypertension Priority: Secondary Status: Chronic Comments: Pressures well controlled. Continue home medications. Qualifiers: Qualified Code(s): I10 - Essential (primary) hypertension (3) COPD (chronic obstructive pulmonary disease) Priority: Secondary Status: Chronic Comments: No acute exacerbation. Lungs are clear diminished throughout. He denies cough above baseline. He denies use of oxygen at home, he is not requiring oxygen here. He is a nonsmoker. Continue home medication regimen after discharge. Qualifiers: Qualified Code(s): J44.9 - Chronic obstructive pulmonary disease, unspecified (4) SVT (supraventricular tachycardia) Priority: Secondary Status: Acute Comments: Patient has prior history of SVT. He had been placed on beta hortencia which has been stopped due to his feeling dizzy. Patient has had several runs of SVT and his stress test was canceled initially. After stress test was completed, he had more runs of SVT and BB was increased again. He was to be discharged last night , again he had runs of SVT. He denied any chest pain at that time. Cardiology was notified. Increase the beta hortencia again. He remained stable overnight without chest pain, shortness of breath, palpitations, or any noted SVT. Patient reports chest heaviness and shortness of breath while he is in SVT. This may be the etiology for his admission dizziness and diarrhea, as well. Patient will continue current dose of metoprolol 50 mg by mouth twice daily at home. Cardiology has signed off. He will follow-up in the office as scheduled. (5) DVT prophylaxis Priority: Secondary Status: Acute Comments: Lovenox subcutaneous daily. Patient is ambulatory. - Discharge Medications Prescriptions: Metoprolol [Lopressor] 50 mg PO BID #60 tablet Home Medications: Albuterol Sulfate [Proair Hfa] 1 puff IH Q4H PRN 11/04/17 [History] Aspirin [Lo-Dose Aspirin EC] 81 mg PO DAILY 11/04/17 [History] Fenofibrate 160 mg PO DAILY 11/04/17 [History] Fluticasone/Salmeterol [Advair Hfa 115-21 Mcg Inhaler] 1 puff IH BID 11/04/17 [ History] Multivitamin [Multivitamins] 1 cap PO DAILY 11/04/17 [History] Omeprazole [PriLOSEC] 20 mg PO DAILY 11/04/17 [History] Simvastatin [Zocor] 40 mg PO HS 11/04/17 [History] Terazosin HCl 2 mg PO DAILY 11/04/17 [History] Metoprolol [Lopressor] 50 mg PO BID #60 tablet 11/07/17 [Rx] Allergies/Adverse Reactions: 3 Allergy/AdvReac Type Severity Reaction Status Date / Time No Known Allergies Allergy Verified 11/04/17 05:07 Procedures/tests Complete & Pending: Procedures Performed prior 72 hours Category Date Time Status NM natacha perf SPECT multi [NM] Routine Exams 11/06/17 11:31 Taken ECG 12 lead ECG [ECG] AM 0600 Y 11/05/17 06:00 Completed ECG 12 lead ECG [ECG] Routine Y 11/04/17 17:15 Completed EKG [ECG 12 lead ECG] [ECG] Routine Y 11/05/17 12:58 Completed EV echocardiogram Routine Y 11/04/17 16:15 Completed SP pharm nuclear stress Routine Y 11/06/17 11:30 Completed Date of admission: 11/04/17 12:34 Primary care physician: Janusz Argueta CNP Consults: 11/05/17 08:07 Consult to Cardiology [CONS] Routine Comment: Consulting Provider: Wood Mckeon Reason for Consult: runs of SVT on monitor. Stress cancelled this a.m. Time Notified: 08:07 Call Completed: Yes Discharging clinician: Brenda Truong Anticipated date of discharge: 11/07/17 - Patient Status Disposition: Home, Self-Care Condition: Good Functional capacity at discharge: independent ambulation Overall status at discharge: patient is back to baseline - Discharge Instructions Follow Up With: Cardiology [facility] [Provider Group] Janusz Argueta CNP [Primary Care Provider] - 11/11/17 9:30 am Additional Instructions: Please follow up with cardiology as scheduled. Please follow up with your PCP in the next 7-10 days. Return to the ER as needed for any other problems or concerns, or if your symptoms return or worsen. Take your medications as directed and return to your normal activities and diet as tolerated. Your new prescription is called into your pharmacy in [place]. - Diet and Activity Activity: increase activity as tolerated Diet: advance to your usual diet Hospital course: Mr. Chaney is a 77 year old male who presented to the emergency department with complaint of dizziness and chest pain. He has prior history of SVT, he had been placed on a beta hortencia which was later discontinued due to dizziness. Patient was found to have runs of SVT again. He was paced back on a beta hortencia which was increased several times. Patient had an echocardiogram with preserved EF, negative stress test. Patient will be sent home with metoprolol 50 mg by mouth twice a day for control of the SVT. He will follow-up with cardiology outpatient. He denies chest pain or dizziness at discharge. He is returned to his baseline and is stable for discharge. Please see assessment and plan for thorough hospital course. - Time Spent with Patient Total time spent providing and/or coordinating discharge services: Less than 30 minutes - Constitutional Vitals: Temp Pulse Resp BP Pulse Ox 98.1 F 66 18 154/84 90 11/07/17 07:48 11/07/17 07:48 11/07/17 08:34 11/07/17 07:48 11/07/17 08:34 General appearance: Present: cooperative, A&O X 3, pleasant, no acute distress, answers questions appropriately - Head Head exam: Present: atraumatic, normal inspection, normocephalic - Eye Eye exam: Present: conjuntiva pink, sclera anicteric - Neck Neck exam general surgery: Present: supple, trachea midline. Absent: lymphadenopathy - Respiratory Respiratory exam: Present: CTAB. Absent: accessory muscle use, rales, rhonchi, wheezes - Cardiovascular Cardiovascular exam: Present: RRR, +S1, +S2. Absent: diastolic murmur, gallop, rubs, systolic murmur - GI/Abdominal GI/Abdominal exam: Present: normal bowel sounds, soft. Absent: distended, hepatomegaly, tenderness - Extremities Exam Extremities exam: Present: warm, radial pulses palpable and symmetrical. Absent : calf tenderness, cyanotic, normal inspection, pedal edema - Neurological Exam Neurological exam: Present: alert, oriented X3, no focal deficits. Absent: facial droop, speech deficit - Skin Skin exam: Present: dry, intact, normal color, warm. Absent: rash
== END 2017-11-07 12:00 | disposition home or self-care (01) ==
LOC: 3BNU
PROVIDERS: ADMIT Hospitalist; ATTEND Registered Nurse

== ENCOUNTER 2020-07-03 06:33 | Inpatient (IN) ==
[2020-07-03] MEDS ORDERED: Naloxone 0.4 MG/ML INJ IVP PRN (10:59)
[2020-07-03] MEDS ORDERED: Ondansetron 4 MG/2 ML VIAL IVP PRN (10:59)
[2020-07-03] MEDS ORDERED: Isovue-370 500 ML BOTTLE IVP ONE (11:07)
[2020-07-03] MEDS ORDERED: Ipratropium/Albuterol Neb 3 ML IH SCH (12:00)
[2020-07-03] MEDS: Ipratropium 1 PUFF INHALER IH SCH ×4 (12:11→23:20)
[2020-07-03 12:33] LABS: VBG HCO3 23 mEq/L (21-27); VBG PCO2 28 mmHg (41-51); VBG PH 7.52 pH Units (7.32-7.42); VBG PO2 59 mmHg (25-50)
[2020-07-03] MEDS ORDERED: *HR* Metoprolol 5 MG/5 ML VIAL IVP PRN (12:42)
[2020-07-03] MEDS: Dexamethasone 4 MG/ML VIAL IVP SCH (13:52)
[2020-07-03] MEDS: *HR* Heparin 5,000 UNIT/ML VIAL SQ SCH ×2 (13:53→20:07)
[2020-07-03] MEDS: Azithromycin 500 MG in 0.9 % Sodium Chloride 250 ML IVPB SCH (13:54)
[2020-07-03] MEDS: Aspirin Enteric Coated 81 MG Tablet PO SCH (20:07)
[2020-07-04] MEDS: Ipratropium 1 PUFF INHALER IH SCH ×6 (03:26→23:32)
[2020-07-04] MEDS: Levothyroxine 25 MCG TABLET PO SCH (05:01)
[2020-07-04] MEDS: *HR* Heparin 5,000 UNIT/ML VIAL SQ SCH ×3 (05:01→20:26)
[2020-07-04 06:20] LABS: Basophils % 0.3 %; Hematocrit 36.7 % (37.5-50.1); Hemoglobin 12.4 g/dL (12.9-16.9); Immature Granulocytes % 0.9 % (0-4); Lymphocytes # 0.3 K/mcL (0.6-4.6); Lymphocytes % 4.6 %; Mean Corpuscular HGB Conc 33.8 g/dL (31.6-35.5); Mean Corpuscular Hemoglobin 29.4 pg (28.0-33.3); Mean Platelet Volume 10.7 fL (9.4-12.4); Monocytes # 0.4 K/mcL (0.0-1.3); Monocytes % 5.9 %; Neutrophils # 6.6 K/mcL (1.6-8.9); Platelet Count 242 K/mcL (140-400); Red Blood Count 4.22 M/mcL (4.19-5.50); Red Cell Distribution Width 12.9 % (11.5-14.5); Segmented Neutrophils % 88.3 %; White Blood Count 7.4 K/mcL (4.3-11.1)
[2020-07-04 06:38] LABS: BUN/Creatinine Ratio 23 (6-26); Blood Urea Nitrogen 16 mg/dL (8-23); Calcium 9.2 mg/dL (8.6-10.3); Carbon Dioxide 25 mEq/L (23-29); Chloride 98 mEq/L (98-107); Glucose 146 mg/dL (70-105); Osmolality,Calculated 278 (280-300); Potassium 3.7 mEq/L (3.5-5.1); Sodium 132 mEq/L (136-145); eGFR For African Americans > 60 (> 60); eGFR For Non-African Americans > 60 (> 60)
[2020-07-04] MEDS ORDERED: Furosemide 40 MG/4 ML VIAL IVP ONE (09:16)
[2020-07-04] MEDS: Dexamethasone 4 MG/ML VIAL IVP SCH (09:45)
[2020-07-04] MEDS: Ascorbic Acid 500 MG TABLET PO SCH (09:45)
[2020-07-04] MEDS: Multivit/Ca/Min/Fe/FA 1 TAB TABLET PO SCH (09:45)
[2020-07-04] MEDS: cefTRIAXone 1,000 MG in Water for inj. (sterile) 10 ML IVP SCH (09:46)
[2020-07-04 10:52] LABS: D-Dimer 1323 ng/mLFEU (0-500)
[2020-07-04 10:54] LABS: Albumin 3.4 g/dL (3.5-5.7); Albumin/Globulin Ratio 1.2 (1.1-2.2); Bilirubin,Direct 0.3 mg/dL (0.0-0.2); Bilirubin,Indirect 0.4 mg/dL (0.0-1.0); Bilirubin,Total 0.7 mg/dL (0.3-1.0); Globulin 2.9 g/dL (2.4-3.5); Total Protein 6.3 g/dL (6.4-8.9)
[2020-07-04 10:55] LABS: Lactate Dehydrogenase 296 Units/L (140-271)
[2020-07-04 11:02] LABS: Fibrinogen 789 mg/dL (169-393)
[2020-07-04 11:13] LABS: Ferritin 816 ng/mL (20-250)
[2020-07-04] MEDS: Azithromycin 500 MG in 0.9 % Sodium Chloride 250 ML IVPB SCH (11:30)
[2020-07-04] MEDS: Aspirin Enteric Coated 81 MG Tablet PO SCH (20:04)
[2020-07-04] MEDS ORDERED: *HR* LORazepam 2 MG/ML VIAL IVP ONE (23:16)
[2020-07-05] MEDS ORDERED: *HR* LORazepam 2 MG/ML VIAL IVP ONE (00:30)
[2020-07-05] MEDS ORDERED: Dexmedetomidine HCl 400 MCG/100 ML MLS IVC ONE (03:13)
[2020-07-05] MEDS: Dexmedetomidine HCl 400 MCG/100 ML MLS IVC SCH ×2 (03:30→17:02)
[2020-07-05] MEDS: Ipratropium 1 PUFF INHALER IH SCH ×6 (03:54→23:55)
[2020-07-05] MEDS: Budesonide/Formoterol 160/4.5 1 PUFF INH IH SCH ×3 (04:01→20:16)
[2020-07-05 04:48] LABS: Basophils % 0.2 %; Hematocrit 34.6 % (37.5-50.1); Immature Granulocytes % 1.7 % (0-4); Lymphocytes # 0.4 K/mcL (0.6-4.6); Lymphocytes % 2.9 %; Mean Corpuscular HGB Conc 34.7 g/dL (31.6-35.5); Mean Corpuscular Hemoglobin 30.5 pg (28.0-33.3); Mean Corpuscular Volume 87.8 fL (83.0-100.0); Mean Platelet Volume 11.3 fL (9.4-12.4); Monocytes # 0.9 K/mcL (0.0-1.3); Monocytes % 6.7 %; Neutrophils # 12.1 K/mcL (1.6-8.9); Platelet Count 241 K/mcL (140-400); Red Blood Count 3.94 M/mcL (4.19-5.50); Red Cell Distribution Width 12.8 % (11.5-14.5); Segmented Neutrophils % 88.5 %
[2020-07-05 04:50] LABS: White Blood Count 13.7 K/mcL (4.3-11.1)
[2020-07-05 04:56] LABS: Fibrinogen 653 mg/dL (169-393)
[2020-07-05 04:58] LABS: D-Dimer 1346 ng/mLFEU (0-500)
[2020-07-05 05:09] LABS: BUN/Creatinine Ratio 34 (6-26); Blood Urea Nitrogen 25 mg/dL (8-23); Calcium 8.8 mg/dL (8.6-10.3); Carbon Dioxide 21 mEq/L (23-29); Chloride 101 mEq/L (98-107); Glucose 102 mg/dL (70-105); Lactate Dehydrogenase 351 Units/L (140-271); Osmolality,Calculated 283 (280-300); Potassium 3.9 mEq/L (3.5-5.1); Sodium 134 mEq/L (136-145); eGFR For African Americans > 60 (> 60); eGFR For Non-African Americans > 60 (> 60)
[2020-07-05 05:26] LABS: Ferritin 1018 ng/mL (20-250)
[2020-07-05] MEDS: *HR* Heparin 5,000 UNIT/ML VIAL SQ SCH ×3 (05:46→20:58)
[2020-07-05] MEDS: Dexamethasone 4 MG/ML VIAL IVP SCH (08:41)
[2020-07-05] MEDS: cefTRIAXone 1,000 MG in Water for inj. (sterile) 10 ML IVP SCH (08:41)
[2020-07-05] MEDS: Levothyroxine 25 MCG TABLET PO SCH (09:28)
[2020-07-05] MEDS: Multivit/Ca/Min/Fe/FA 1 TAB TABLET PO SCH (09:28)
[2020-07-05] MEDS: Ascorbic Acid 500 MG TABLET PO SCH (09:28)
[2020-07-05] MEDS: Azithromycin 500 MG in 0.9 % Sodium Chloride 250 ML IVPB SCH (12:25)
[2020-07-05] MEDS: Aspirin Enteric Coated 81 MG Tablet PO SCH (20:58)
[2020-07-06] MEDS: Ipratropium 1 PUFF INHALER IH SCH ×6 (03:26→23:44)
[2020-07-06] MEDS: Levothyroxine 25 MCG TABLET PO SCH (06:08)
[2020-07-06] MEDS: *HR* Enoxaparin 40 MG/0.4 ML SYRINGE SQ SCH (06:09)
[2020-07-06 06:55] LABS: Hematocrit 40.6 % (37.5-50.1); Hemoglobin 13.5 g/dL (12.9-16.9); Mean Corpuscular HGB Conc 33.3 g/dL (31.6-35.5); Mean Corpuscular Hemoglobin 29.7 pg (28.0-33.3); Mean Corpuscular Volume 89.4 fL (83.0-100.0); Mean Platelet Volume 10.3 fL (9.4-12.4); Platelet Count 280 K/mcL (140-400); Red Blood Count 4.54 M/mcL (4.19-5.50); Red Cell Distribution Width 13.1 % (11.5-14.5)
[2020-07-06 07:28] LABS: Lymphocytes # 1.3 K/mcL (0.6-4.6); Monocytes # 0.9 K/mcL (0.0-1.3); Neutrophils # 8.8 K/mcL (1.6-8.9); Platelet Estimate Normal (Normal)
[2020-07-06] MEDS: Dexamethasone 4 MG/ML VIAL IVP SCH (09:08)
[2020-07-06] MEDS: cefTRIAXone 1,000 MG in Water for inj. (sterile) 10 ML IVP SCH (09:09)
[2020-07-06] MEDS: Ascorbic Acid 500 MG TABLET PO SCH (10:01)
[2020-07-06] MEDS: Multivit/Ca/Min/Fe/FA 1 TAB TABLET PO SCH (10:01)
[2020-07-06 11:08] LABS: Alanine Aminotransferase 20 Units/L (7-52); Albumin 3.1 g/dL (3.5-5.7); Albumin/Globulin Ratio 1.1 (1.1-2.2); Alkaline Phosphatase 38 Units/L (34-104); Aspartate Amino Transferase 38 Units/L (13-39); BUN/Creatinine Ratio 34 (6-26); Bilirubin,Total 0.6 mg/dL (0.3-1.0); Blood Urea Nitrogen 29 mg/dL (8-23); Calcium 8.7 mg/dL (8.6-10.3); Carbon Dioxide 27 mEq/L (23-29); Chloride 102 mEq/L (98-107); Globulin 2.7 g/dL (2.4-3.5); Glucose 97 mg/dL (70-105); Osmolality,Calculated 290 (280-300); Potassium 3.8 mEq/L (3.5-5.1); Sodium 137 mEq/L (136-145); Total Protein 5.8 g/dL (6.4-8.9); eGFR For African Americans > 60 (> 60); eGFR For Non-African Americans > 60 (> 60)
[2020-07-06] MEDS: Budesonide/Formoterol 160/4.5 1 PUFF INH IH SCH ×2 (11:39→19:54)
[2020-07-06] MEDS ORDERED: Azithromycin 250 MG TABLET PO SCH (12:00)
[2020-07-06] MEDS ORDERED: Remdesivir 200 MG in 0.9 % Sodium Chloride 210 ML IVPB ONE (16:00)
[2020-07-06] MEDS ORDERED: Azithromycin 500 MG in 0.9 % Sodium Chloride 250 ML IVPB SCH (16:00)
[2020-07-06] MEDS: Azithromycin 500 MG in 0.9 % Sodium Chloride 250 ML IVPB SCH (17:39)
[2020-07-06] MEDS: Dexmedetomidine HCl 400 MCG/100 ML MLS IVC SCH (18:46)
[2020-07-06] MEDS: Aspirin Enteric Coated 81 MG Tablet PO SCH (20:46)
[2020-07-07] MEDS: Ipratropium 1 PUFF INHALER IH SCH ×6 (03:33→23:53)
[2020-07-07] MEDS: *HR* Enoxaparin 40 MG/0.4 ML SYRINGE SQ SCH (05:15)
[2020-07-07] MEDS: Levothyroxine 25 MCG TABLET PO SCH (05:15)
[2020-07-07 06:10] LABS: Hematocrit 37.9 % (37.5-50.1); Hemoglobin 12.7 g/dL (12.9-16.9); Mean Corpuscular HGB Conc 33.5 g/dL (31.6-35.5); Mean Corpuscular Hemoglobin 30.2 pg (28.0-33.3); Mean Corpuscular Volume 90.2 fL (83.0-100.0); Mean Platelet Volume 10.5 fL (9.4-12.4); Platelet Count 287 K/mcL (140-400); Red Cell Distribution Width 13.1 % (11.5-14.5); White Blood Count 10.9 K/mcL (4.3-11.1)
[2020-07-07 06:14] LABS: INR 1.5; Prothrombin Time 16.5 Seconds (9.4-12.1)
[2020-07-07 06:25] LABS: Alanine Aminotransferase 19 Units/L (7-52); Albumin/Globulin Ratio 1.2 (1.1-2.2); Alkaline Phosphatase 38 Units/L (34-104); Aspartate Amino Transferase 35 Units/L (13-39); BUN/Creatinine Ratio 41 (6-26); Bilirubin,Total 0.6 mg/dL (0.3-1.0); Blood Urea Nitrogen 30 mg/dL (8-23); Calcium 8.7 mg/dL (8.6-10.3); Carbon Dioxide 26 mEq/L (23-29); Chloride 104 mEq/L (98-107); Globulin 2.6 g/dL (2.4-3.5); Glucose 88 mg/dL (70-105); Osmolality,Calculated 294 (280-300); Sodium 139 mEq/L (136-145); Total Protein 5.6 g/dL (6.4-8.9); eGFR For African Americans > 60 (> 60); eGFR For Non-African Americans > 60 (> 60)
[2020-07-07] MEDS: Budesonide/Formoterol 160/4.5 1 PUFF INH IH SCH ×2 (07:43→20:09)
[2020-07-07] MEDS: Ascorbic Acid 500 MG TABLET PO SCH (08:35)
[2020-07-07] MEDS: Multivit/Ca/Min/Fe/FA 1 TAB TABLET PO SCH (08:35)
[2020-07-07] MEDS: Dexamethasone 4 MG/ML VIAL IVP SCH (08:38)
[2020-07-07] MEDS: cefTRIAXone 1,000 MG in Water for inj. (sterile) 10 ML IVP SCH (08:39)
[2020-07-07] MEDS: Remdesivir 100 MG in 0.9 % Sodium Chloride 230 ML IVPB SCH (15:33)
[2020-07-07] MEDS: Azithromycin 500 MG in 0.9 % Sodium Chloride 250 ML IVPB SCH (18:33)
[2020-07-07] MEDS: Aspirin Enteric Coated 81 MG Tablet PO SCH (20:11)
[2020-07-08] MEDS: Ipratropium 1 PUFF INHALER IH SCH ×6 (04:03→23:42)
[2020-07-08] MEDS: *HR* Enoxaparin 40 MG/0.4 ML SYRINGE SQ SCH (05:12)
[2020-07-08] MEDS: Levothyroxine 25 MCG TABLET PO SCH (05:13)
[2020-07-08] MEDS: Budesonide/Formoterol 160/4.5 1 PUFF INH IH SCH ×2 (07:46→20:10)
[2020-07-08] MEDS: cefTRIAXone 1,000 MG in Water for inj. (sterile) 10 ML IVP SCH (08:25)
[2020-07-08] MEDS: Ascorbic Acid 500 MG TABLET PO SCH (08:26)
[2020-07-08] MEDS: Dexamethasone 4 MG/ML VIAL IVP SCH (08:26)
[2020-07-08] MEDS: Multivit/Ca/Min/Fe/FA 1 TAB TABLET PO SCH (08:26)
[2020-07-08 11:47] LABS: Hematocrit 35.8 % (37.5-50.1); Hemoglobin 11.9 g/dL (12.9-16.9); Mean Corpuscular HGB Conc 33.2 g/dL (31.6-35.5); Mean Corpuscular Hemoglobin 29.5 pg (28.0-33.3); Mean Corpuscular Volume 88.8 fL (83.0-100.0); Mean Platelet Volume 10.7 fL (9.4-12.4); Platelet Count 309 K/mcL (140-400); Red Blood Count 4.03 M/mcL (4.19-5.50); Red Cell Distribution Width 13.1 % (11.5-14.5)
[2020-07-08 11:53] LABS: INR 1.6; Prothrombin Time 17.8 Seconds (9.4-12.1)
[2020-07-08 11:58] LABS: Alanine Aminotransferase 20 Units/L (7-52); Albumin 2.8 g/dL (3.5-5.7); Albumin/Globulin Ratio 1.1 (1.1-2.2); Alkaline Phosphatase 36 Units/L (34-104); Aspartate Amino Transferase 30 Units/L (13-39); BUN/Creatinine Ratio 43 (6-26); Bilirubin,Total 0.4 mg/dL (0.3-1.0); Blood Urea Nitrogen 27 mg/dL (8-23); Calcium 8.3 mg/dL (8.6-10.3); Carbon Dioxide 20 mEq/L (23-29); Chloride 105 mEq/L (98-107); Globulin 2.5 g/dL (2.4-3.5); Glucose 142 mg/dL (70-105); Osmolality,Calculated 290 (280-300); Potassium 3.8 mEq/L (3.5-5.1); Sodium 136 mEq/L (136-145); Total Protein 5.3 g/dL (6.4-8.9); eGFR For African Americans > 60 (> 60); eGFR For Non-African Americans > 60 (> 60)
[2020-07-08] MEDS: Remdesivir 100 MG in 0.9 % Sodium Chloride 230 ML IVPB SCH (15:20)
[2020-07-08] MEDS: Azithromycin 500 MG in 0.9 % Sodium Chloride 250 ML IVPB SCH (16:35)
[2020-07-08] MEDS: Aspirin Enteric Coated 81 MG Tablet PO SCH (20:49)
[2020-07-09] MEDS: Ipratropium 1 PUFF INHALER IH SCH ×5 (03:57→19:43)
[2020-07-09] MEDS: *HR* Enoxaparin 40 MG/0.4 ML SYRINGE SQ SCH (05:48)
[2020-07-09] MEDS: Levothyroxine 25 MCG TABLET PO SCH (05:48)
[2020-07-09] MEDS: Budesonide/Formoterol 160/4.5 1 PUFF INH IH SCH ×2 (07:40→19:43)
[2020-07-09 07:54] LABS: Hematocrit 35.9 % (37.5-50.1); Hemoglobin 11.7 g/dL (12.9-16.9); Mean Corpuscular HGB Conc 32.6 g/dL (31.6-35.5); Mean Corpuscular Hemoglobin 29.2 pg (28.0-33.3); Mean Corpuscular Volume 89.5 fL (83.0-100.0); Mean Platelet Volume 10.7 fL (9.4-12.4); Platelet Count 323 K/mcL (140-400); Red Blood Count 4.01 M/mcL (4.19-5.50); White Blood Count 14.6 K/mcL (4.3-11.1)
[2020-07-09 07:59] LABS: INR 1.4; Prothrombin Time 16.4 Seconds (9.4-12.1)
[2020-07-09 08:14] LABS: Alanine Aminotransferase 18 Units/L (7-52); Albumin 2.8 g/dL (3.5-5.7); Albumin/Globulin Ratio 1.2 (1.1-2.2); Alkaline Phosphatase 38 Units/L (34-104); Aspartate Amino Transferase 33 Units/L (13-39); BUN/Creatinine Ratio 38 (6-26); Bilirubin,Total 0.5 mg/dL (0.3-1.0); Blood Urea Nitrogen 24 mg/dL (8-23); Calcium 8.6 mg/dL (8.6-10.3); Carbon Dioxide 24 mEq/L (23-29); Chloride 105 mEq/L (98-107); Globulin 2.4 g/dL (2.4-3.5); Glucose 86 mg/dL (70-105); Osmolality,Calculated 285 (280-300); Potassium 3.9 mEq/L (3.5-5.1); Sodium 136 mEq/L (136-145); Total Protein 5.2 g/dL (6.4-8.9); eGFR For African Americans > 60 (> 60); eGFR For Non-African Americans > 60 (> 60)
[2020-07-09] MEDS: Dexamethasone 4 MG/ML VIAL IVP SCH (08:55)
[2020-07-09] MEDS: cefTRIAXone 1,000 MG in Water for inj. (sterile) 10 ML IVP SCH (08:56)
[2020-07-09] MEDS: Ascorbic Acid 500 MG TABLET PO SCH (08:56)
[2020-07-09] MEDS: Multivit/Ca/Min/Fe/FA 1 TAB TABLET PO SCH (08:56)
[2020-07-09] MEDS ORDERED: *HR* Heparin 5,000 UNIT/ML VIAL IVP ONE (11:23)
[2020-07-09] MEDS ORDERED: *HR* Heparin 5,000 UNIT/ML VIAL IVP PRN ×2 (11:23)
[2020-07-09] MEDS ORDERED: Furosemide 40 MG/4 ML VIAL IVP ONE (11:25)
[2020-07-09] MEDS: Heparin 25,000UNIT/250ML 1/2NS 25,000 UNIT/250 ML IV.SOLN IVC SCH (12:37)
[2020-07-09] MEDS ORDERED: 0.9 % Sodium Chloride 250 ML ONE (14:46)
[2020-07-09] MEDS: Remdesivir 100 MG in 0.9 % Sodium Chloride 230 ML IVPB SCH (16:09)
[2020-07-09] MEDS: Azithromycin 500 MG in 0.9 % Sodium Chloride 250 ML IVPB SCH (17:40)
[2020-07-09] MEDS: Aspirin Enteric Coated 81 MG Tablet PO SCH (20:31)
[2020-07-10] MEDS: Ipratropium 1 PUFF INHALER IH SCH ×7 (00:14→23:24)
[2020-07-10 01:24] LABS: Hematocrit 33.4 % (37.5-50.1); Hemoglobin 11.3 g/dL (12.9-16.9); Mean Corpuscular HGB Conc 33.8 g/dL (31.6-35.5); Mean Corpuscular Hemoglobin 29.4 pg (28.0-33.3); Mean Platelet Volume 10.6 fL (9.4-12.4); Platelet Count 334 K/mcL (140-400); Red Blood Count 3.84 M/mcL (4.19-5.50); Red Cell Distribution Width 12.9 % (11.5-14.5)
[2020-07-10 01:31] LABS: INR 1.6; Prothrombin Time 18.3 Seconds (9.4-12.1)
[2020-07-10 01:40] LABS: Alanine Aminotransferase 19 Units/L (7-52); Albumin 2.6 g/dL (3.5-5.7); Albumin/Globulin Ratio 1.1 (1.1-2.2); Alkaline Phosphatase 40 Units/L (34-104); Aspartate Amino Transferase 30 Units/L (13-39); BUN/Creatinine Ratio 37 (6-26); Bilirubin,Total 0.5 mg/dL (0.3-1.0); Blood Urea Nitrogen 22 mg/dL (8-23); Calcium 8.2 mg/dL (8.6-10.3); Carbon Dioxide 23 mEq/L (23-29); Chloride 104 mEq/L (98-107); Globulin 2.4 g/dL (2.4-3.5); Glucose 113 mg/dL (70-105); Osmolality,Calculated 284 (280-300); Potassium 3.8 mEq/L (3.5-5.1); Sodium 135 mEq/L (136-145); eGFR For African Americans > 60 (> 60); eGFR For Non-African Americans > 60 (> 60)
[2020-07-10] MEDS: Levothyroxine 25 MCG TABLET PO SCH (05:50)
[2020-07-10] MEDS: Budesonide/Formoterol 160/4.5 1 PUFF INH IH SCH ×2 (07:23→19:24)
[2020-07-10] MEDS: Multivit/Ca/Min/Fe/FA 1 TAB TABLET PO SCH (07:47)
[2020-07-10] MEDS: Dexamethasone 4 MG/ML VIAL IVP SCH (07:47)
[2020-07-10] MEDS: Ascorbic Acid 500 MG TABLET PO SCH (07:47)
[2020-07-10] MEDS: Furosemide 40 MG/4 ML VIAL IVP SCH (07:48)
[2020-07-10] MEDS: cefTRIAXone 2,000 MG in Water for inj. (sterile) 10 ML IVP SCH (07:49)
[2020-07-10] MEDS: Heparin 25,000UNIT/250ML 1/2NS 25,000 UNIT/250 ML IV.SOLN IVC SCH (08:17)
[2020-07-10] MEDS: Remdesivir 100 MG in 0.9 % Sodium Chloride 230 ML IVPB SCH (16:25)
[2020-07-10] MEDS: Azithromycin 500 MG in 0.9 % Sodium Chloride 250 ML IVPB SCH (17:45)
[2020-07-10] MEDS: Aspirin Enteric Coated 81 MG Tablet PO SCH (20:44)
[2020-07-11 02:18] LABS: INR 1.6; Prothrombin Time 18.1 Seconds (9.4-12.1)
[2020-07-11 02:19] LABS: Hematocrit 34.8 % (37.5-50.1); Hemoglobin 11.7 g/dL (12.9-16.9); Mean Corpuscular HGB Conc 33.6 g/dL (31.6-35.5); Mean Corpuscular Hemoglobin 29.4 pg (28.0-33.3); Mean Corpuscular Volume 87.4 fL (83.0-100.0); Mean Platelet Volume 11.1 fL (9.4-12.4); Platelet Count 323 K/mcL (140-400); Red Blood Count 3.98 M/mcL (4.19-5.50); Red Cell Distribution Width 12.8 % (11.5-14.5); White Blood Count 14.9 K/mcL (4.3-11.1)
[2020-07-11 02:31] LABS: Alanine Aminotransferase 19 Units/L (7-52); Albumin 2.7 g/dL (3.5-5.7); Alkaline Phosphatase 54 Units/L (34-104); Aspartate Amino Transferase 30 Units/L (13-39); BUN/Creatinine Ratio 40 (6-26); Bilirubin,Total 0.5 mg/dL (0.3-1.0); Blood Urea Nitrogen 25 mg/dL (8-23); Calcium 8.4 mg/dL (8.6-10.3); Carbon Dioxide 25 mEq/L (23-29); Chloride 102 mEq/L (98-107); Globulin 2.6 g/dL (2.4-3.5); Glucose 121 mg/dL (70-105); Osmolality,Calculated 286 (280-300); Potassium 3.7 mEq/L (3.5-5.1); Sodium 135 mEq/L (136-145); Total Protein 5.3 g/dL (6.4-8.9); eGFR For African Americans > 60 (> 60); eGFR For Non-African Americans > 60 (> 60)
[2020-07-11] MEDS: Ipratropium 1 PUFF INHALER IH SCH ×5 (03:25→19:54)
[2020-07-11] MEDS: Heparin 25,000UNIT/250ML 1/2NS 25,000 UNIT/250 ML IV.SOLN IVC SCH (05:35)
[2020-07-11] MEDS: Levothyroxine 25 MCG TABLET PO SCH (05:35)
[2020-07-11] MEDS: Budesonide/Formoterol 160/4.5 1 PUFF INH IH SCH ×2 (07:17→19:54)
[2020-07-11] MEDS: cefTRIAXone 2,000 MG in Water for inj. (sterile) 10 ML IVP SCH (08:45)
[2020-07-11] MEDS: Dexamethasone 4 MG/ML VIAL IVP SCH (08:46)
[2020-07-11] MEDS: Furosemide 40 MG/4 ML VIAL IVP SCH (08:46)
[2020-07-11] MEDS: Multivit/Ca/Min/Fe/FA 1 TAB TABLET PO SCH (08:47)
[2020-07-11] MEDS: Ascorbic Acid 500 MG TABLET PO SCH (08:47)
[2020-07-11 10:43] LABS: Heparin anti-factor XA UFH 0.46 IU/mL (0.30-0.70)
[2020-07-11] MEDS: Aspirin Enteric Coated 81 MG Tablet PO SCH (20:31)
[2020-07-12] MEDS: Ipratropium 1 PUFF INHALER IH SCH ×7 (00:04→22:57)
[2020-07-12] MEDS: Levothyroxine 25 MCG TABLET PO SCH (05:21)
[2020-07-12] MEDS: *HR* Enoxaparin 40 MG/0.4 ML SYRINGE SQ SCH (05:21)
[2020-07-12 05:53] LABS: Hematocrit 36.2 % (37.5-50.1); Hemoglobin 11.9 g/dL (12.9-16.9); Mean Corpuscular HGB Conc 32.9 g/dL (31.6-35.5); Mean Corpuscular Hemoglobin 28.5 pg (28.0-33.3); Mean Corpuscular Volume 86.8 fL (83.0-100.0); Mean Platelet Volume 10.4 fL (9.4-12.4); Platelet Count 330 K/mcL (140-400); Red Blood Count 4.17 M/mcL (4.19-5.50); Red Cell Distribution Width 13.1 % (11.5-14.5); White Blood Count 16.4 K/mcL (4.3-11.1)
[2020-07-12 05:54] LABS: INR 1.4; Prothrombin Time 15.8 Seconds (9.4-12.1)
[2020-07-12 06:07] LABS: Alanine Aminotransferase 18 Units/L (7-52); Albumin 2.7 g/dL (3.5-5.7); Albumin/Globulin Ratio 1.1 (1.1-2.2); Alkaline Phosphatase 39 Units/L (34-104); Aspartate Amino Transferase 22 Units/L (13-39); BUN/Creatinine Ratio 38 (6-26); Bilirubin,Total 0.6 mg/dL (0.3-1.0); Blood Urea Nitrogen 27 mg/dL (8-23); Calcium 8.5 mg/dL (8.6-10.3); Carbon Dioxide 27 mEq/L (23-29); Chloride 103 mEq/L (98-107); Globulin 2.5 g/dL (2.4-3.5); Glucose 103 mg/dL (70-105); Osmolality,Calculated 285 (280-300); Potassium 4.4 mEq/L (3.5-5.1); Sodium 135 mEq/L (136-145); Total Protein 5.2 g/dL (6.4-8.9); eGFR For African Americans > 60 (> 60); eGFR For Non-African Americans > 60 (> 60)
[2020-07-12] MEDS: Budesonide/Formoterol 160/4.5 1 PUFF INH IH SCH ×2 (07:39→19:59)
[2020-07-12] MEDS: Dexamethasone 4 MG/ML VIAL IVP SCH (09:18)
[2020-07-12] MEDS: Ascorbic Acid 500 MG TABLET PO SCH (09:18)
[2020-07-12] MEDS: Furosemide 40 MG/4 ML VIAL IVP SCH (09:18)
[2020-07-12] MEDS: Multivit/Ca/Min/Fe/FA 1 TAB TABLET PO SCH (09:18)
[2020-07-12] MEDS: Aspirin Enteric Coated 81 MG Tablet PO SCH (21:16)
[2020-07-13 01:57] LABS: INR 1.3; Prothrombin Time 14.9 Seconds (9.4-12.1)
[2020-07-13 02:01] LABS: Hematocrit 36.7 % (37.5-50.1); Hemoglobin 12.5 g/dL (12.9-16.9); Mean Corpuscular HGB Conc 34.1 g/dL (31.6-35.5); Mean Platelet Volume 10.7 fL (9.4-12.4); Platelet Count 337 K/mcL (140-400); Red Blood Count 4.17 M/mcL (4.19-5.50); White Blood Count 18.9 K/mcL (4.3-11.1)
[2020-07-13 02:18] LABS: Alanine Aminotransferase 23 Units/L (7-52); Albumin 2.9 g/dL (3.5-5.7); Albumin/Globulin Ratio 1.2 (1.1-2.2); Alkaline Phosphatase 53 Units/L (34-104); Aspartate Amino Transferase 32 Units/L (13-39); BUN/Creatinine Ratio 40 (6-26); Bilirubin,Total 0.5 mg/dL (0.3-1.0); Blood Urea Nitrogen 28 mg/dL (8-23); Calcium 8.6 mg/dL (8.6-10.3); Carbon Dioxide 25 mEq/L (23-29); Chloride 101 mEq/L (98-107); Globulin 2.5 g/dL (2.4-3.5); Glucose 120 mg/dL (70-105); Osmolality,Calculated 283 (280-300); Potassium 4.1 mEq/L (3.5-5.1); Sodium 133 mEq/L (136-145); Total Protein 5.4 g/dL (6.4-8.9); eGFR For African Americans > 60 (> 60); eGFR For Non-African Americans > 60 (> 60)
[2020-07-13] MEDS: Ipratropium 1 PUFF INHALER IH SCH ×6 (03:57→23:02)
[2020-07-13] MEDS: *HR* Enoxaparin 40 MG/0.4 ML SYRINGE SQ SCH (05:53)
[2020-07-13] MEDS: Levothyroxine 25 MCG TABLET PO SCH (05:53)
[2020-07-13] MEDS: Budesonide/Formoterol 160/4.5 1 PUFF INH IH SCH ×2 (07:34→19:48)
[2020-07-13] MEDS: Furosemide 40 MG/4 ML VIAL IVP SCH (08:50)
[2020-07-13] MEDS: Dexamethasone 4 MG/ML VIAL IVP SCH (08:56)
[2020-07-13] MEDS: Multivit/Ca/Min/Fe/FA 1 TAB TABLET PO SCH (08:58)
[2020-07-13] MEDS: Ascorbic Acid 500 MG TABLET PO SCH (08:58)
[2020-07-13] MEDS: Aspirin Enteric Coated 81 MG Tablet PO SCH (21:02)
[2020-07-14 02:13] LABS: Hematocrit 35.8 % (37.5-50.1); Hemoglobin 12.3 g/dL (12.9-16.9); Mean Corpuscular HGB Conc 34.4 g/dL (31.6-35.5); Mean Corpuscular Hemoglobin 30.1 pg (28.0-33.3); Mean Corpuscular Volume 87.7 fL (83.0-100.0); Mean Platelet Volume 10.4 fL (9.4-12.4); Platelet Count 351 K/mcL (140-400); Red Blood Count 4.08 M/mcL (4.19-5.50); Red Cell Distribution Width 13.1 % (11.5-14.5); White Blood Count 18.9 K/mcL (4.3-11.1)
[2020-07-14 02:21] LABS: INR 1.2; Prothrombin Time 13.9 Seconds (9.4-12.1)
[2020-07-14 02:52] LABS: Alanine Aminotransferase 27 Units/L (7-52); Albumin 2.8 g/dL (3.5-5.7); Albumin/Globulin Ratio 1.1 (1.1-2.2); Alkaline Phosphatase 51 Units/L (34-104); Aspartate Amino Transferase 37 Units/L (13-39); BUN/Creatinine Ratio 42 (6-26); Bilirubin,Total 0.6 mg/dL (0.3-1.0); Blood Urea Nitrogen 31 mg/dL (8-23); Calcium 8.7 mg/dL (8.6-10.3); Carbon Dioxide 25 mEq/L (23-29); Chloride 100 mEq/L (98-107); Globulin 2.6 g/dL (2.4-3.5); Glucose 113 mg/dL (70-105); Osmolality,Calculated 281 (280-300); Potassium 4.5 mEq/L (3.5-5.1); Sodium 132 mEq/L (136-145); Total Protein 5.4 g/dL (6.4-8.9); eGFR For African Americans > 60 (> 60); eGFR For Non-African Americans > 60 (> 60)
[2020-07-14] MEDS: Ipratropium 1 PUFF INHALER IH SCH ×5 (03:45→20:44)
[2020-07-14] MEDS: *HR* Enoxaparin 40 MG/0.4 ML SYRINGE SQ SCH (06:08)
[2020-07-14] MEDS: Levothyroxine 25 MCG TABLET PO SCH (06:09)
[2020-07-14] MEDS: Budesonide/Formoterol 160/4.5 1 PUFF INH IH SCH ×2 (07:40→20:44)
[2020-07-14] MEDS: Dexamethasone 4 MG/ML VIAL IVP SCH (08:02)
[2020-07-14] MEDS: Ascorbic Acid 500 MG TABLET PO SCH (08:02)
[2020-07-14] MEDS: Furosemide 40 MG/4 ML VIAL IVP SCH (08:03)
[2020-07-14] MEDS: Multivit/Ca/Min/Fe/FA 1 TAB TABLET PO SCH (08:03)
[2020-07-14] MEDS: Aspirin Enteric Coated 81 MG Tablet PO SCH (20:14)
[2020-07-15] MEDS: Ipratropium 1 PUFF INHALER IH SCH ×7 (00:12→23:59)
[2020-07-15 01:46] LABS: INR 1.3; Prothrombin Time 14.2 Seconds (9.4-12.1)
[2020-07-15 01:51] LABS: Hematocrit 36.1 % (37.5-50.1); Hemoglobin 12.4 g/dL (12.9-16.9); Mean Corpuscular HGB Conc 34.3 g/dL (31.6-35.5); Mean Corpuscular Hemoglobin 30.2 pg (28.0-33.3); Mean Corpuscular Volume 87.8 fL (83.0-100.0); Mean Platelet Volume 10.9 fL (9.4-12.4); Platelet Count 339 K/mcL (140-400); Red Blood Count 4.11 M/mcL (4.19-5.50); Red Cell Distribution Width 13.2 % (11.5-14.5); White Blood Count 16.2 K/mcL (4.3-11.1)
[2020-07-15 02:10] LABS: Alanine Aminotransferase 35 Units/L (7-52); Albumin 2.8 g/dL (3.5-5.7); Albumin/Globulin Ratio 1.2 (1.1-2.2); Alkaline Phosphatase 51 Units/L (34-104); Aspartate Amino Transferase 37 Units/L (13-39); BUN/Creatinine Ratio 39 (6-26); Bilirubin,Total 0.7 mg/dL (0.3-1.0); Blood Urea Nitrogen 28 mg/dL (8-23); Calcium 8.3 mg/dL (8.6-10.3); Carbon Dioxide 24 mEq/L (23-29); Chloride 100 mEq/L (98-107); Globulin 2.4 g/dL (2.4-3.5); Glucose 102 mg/dL (70-105); Osmolality,Calculated 280 (280-300); Sodium 132 mEq/L (136-145); Total Protein 5.2 g/dL (6.4-8.9); eGFR For African Americans > 60 (> 60); eGFR For Non-African Americans > 60 (> 60)
[2020-07-15] MEDS: *HR* Enoxaparin 40 MG/0.4 ML SYRINGE SQ SCH (05:40)
[2020-07-15] MEDS: Levothyroxine 25 MCG TABLET PO SCH (05:40)
[2020-07-15] MEDS: Budesonide/Formoterol 160/4.5 1 PUFF INH IH SCH ×2 (07:30→20:00)
[2020-07-15] MEDS: Multivit/Ca/Min/Fe/FA 1 TAB TABLET PO SCH (09:07)
[2020-07-15] MEDS: Ascorbic Acid 500 MG TABLET PO SCH (09:07)
[2020-07-15] MEDS: Dexamethasone 4 MG/ML VIAL IVP SCH (09:07)
[2020-07-15] MEDS: Furosemide 40 MG/4 ML VIAL IVP SCH (09:08)
[2020-07-15] MEDS: Aspirin Enteric Coated 81 MG Tablet PO SCH (20:15)
[2020-07-16] MEDS: Melatonin 3 MG TABLET PO PRN ×2 (01:35→23:21)
[2020-07-16] MEDS: Ipratropium 1 PUFF INHALER IH SCH ×6 (03:35→23:37)
[2020-07-16] MEDS: *HR* Enoxaparin 40 MG/0.4 ML SYRINGE SQ SCH (06:42)
[2020-07-16] MEDS: Levothyroxine 25 MCG TABLET PO SCH (06:43)
[2020-07-16] MEDS: Budesonide/Formoterol 160/4.5 1 PUFF INH IH SCH ×2 (07:11→19:46)
[2020-07-16] MEDS: Furosemide 40 MG/4 ML VIAL IVP SCH (08:50)
[2020-07-16] MEDS: Ascorbic Acid 500 MG TABLET PO SCH (08:50)
[2020-07-16] MEDS: Multivit/Ca/Min/Fe/FA 1 TAB TABLET PO SCH (08:50)
[2020-07-16] MEDS ORDERED: Dexamethasone 4 MG/ML VIAL IVP SCH (09:00)
[2020-07-16 09:33] LABS: Hematocrit 38.6 % (37.5-50.1); Hemoglobin 12.7 g/dL (12.9-16.9); Mean Corpuscular HGB Conc 32.9 g/dL (31.6-35.5); Mean Corpuscular Hemoglobin 29.3 pg (28.0-33.3); Mean Corpuscular Volume 88.9 fL (83.0-100.0); Mean Platelet Volume 10.9 fL (9.4-12.4); Platelet Count 336 K/mcL (140-400); Red Blood Count 4.34 M/mcL (4.19-5.50); Red Cell Distribution Width 13.4 % (11.5-14.5); White Blood Count 17.9 K/mcL (4.3-11.1)
[2020-07-16 09:37] LABS: INR 1.2; Prothrombin Time 13.2 Seconds (9.4-12.1)
[2020-07-16 09:53] LABS: Alanine Aminotransferase 31 Units/L (7-52); Albumin 2.9 g/dL (3.5-5.7); Albumin/Globulin Ratio 1.1 (1.1-2.2); Alkaline Phosphatase 55 Units/L (34-104); Aspartate Amino Transferase 27 Units/L (13-39); BUN/Creatinine Ratio 44 (6-26); Bilirubin,Total 0.9 mg/dL (0.3-1.0); Blood Urea Nitrogen 36 mg/dL (8-23); Calcium 8.9 mg/dL (8.6-10.3); Carbon Dioxide 26 mEq/L (23-29); Chloride 100 mEq/L (98-107); Globulin 2.6 g/dL (2.4-3.5); Glucose 97 mg/dL (70-105); Osmolality,Calculated 282 (280-300); Sodium 132 mEq/L (136-145); Total Protein 5.5 g/dL (6.4-8.9); eGFR For African Americans > 60 (> 60); eGFR For Non-African Americans > 60 (> 60)
[2020-07-16 21:17] LABS: ABG Base Excess 4 mEq/L (-2 to 3); ABG HCO3 25 mEq/L (21-27); ABG Oxygen Saturation 93 % (95-98); ABG PCO2 29 mmHg (35-45); ABG PH 7.54 pH Units (7.32-7.45); ABG PO2 57 mmHg (85-104); ABG TCO2 26 mEq/L (20-26)
[2020-07-16] MEDS: Aspirin Enteric Coated 81 MG Tablet PO SCH (23:21)
[2020-07-17] MEDS: Ipratropium 1 PUFF INHALER IH SCH ×6 (03:38→23:44)
[2020-07-17] MEDS: Levothyroxine 25 MCG TABLET PO SCH (05:51)
[2020-07-17] MEDS: *HR* Enoxaparin 40 MG/0.4 ML SYRINGE SQ SCH (05:51)
[2020-07-17] MEDS: Budesonide/Formoterol 160/4.5 1 PUFF INH IH SCH ×2 (07:39→19:49)
[2020-07-17] MEDS: Furosemide 40 MG/4 ML VIAL IVP SCH (09:46)
[2020-07-17] MEDS: Ascorbic Acid 500 MG TABLET PO SCH (09:46)
[2020-07-17] MEDS: Multivit/Ca/Min/Fe/FA 1 TAB TABLET PO SCH (09:46)
[2020-07-18] MEDS: Aspirin Enteric Coated 81 MG Tablet PO SCH (00:05)
[2020-07-18] MEDS: Melatonin 3 MG TABLET PO PRN (00:05)
[2020-07-18] MEDS: Ipratropium 1 PUFF INHALER IH SCH ×2 (04:27→07:54)
[2020-07-18] MEDS: *HR* Enoxaparin 40 MG/0.4 ML SYRINGE SQ SCH (06:35)
[2020-07-18] MEDS: Levothyroxine 25 MCG TABLET PO SCH (06:36)
[2020-07-18] MEDS: Ascorbic Acid 500 MG TABLET PO SCH (07:34)
[2020-07-18] MEDS: Multivit/Ca/Min/Fe/FA 1 TAB TABLET PO SCH (07:34)
[2020-07-18] MEDS: Budesonide/Formoterol 160/4.5 1 PUFF INH IH SCH (07:54)
[2020-07-18 08:30] VITALS: BP 114/57
== END 2020-07-18 10:13 | DRG 177 ==
LOC: 2NENU → SUATTDRO 08:41
PROVIDERS: ADMIT Student in an Organized Health Care Education/Training Program; ATTEND Student in an Organized Health Care Education/Training Program